=== PATIENT | female | born 2005 | race Two or more races ===

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

== ENCOUNTER 2024-03-13 03:33 | Emergency (ER) | payer OTHER ==
[2024-03-13 03:41] VITALS: BP 109/70; PULSE 72; RESP 20; TEMP 98; BMI 28.3
[2024-03-13] MEDS ORDERED: IBUPROFEN 600 MG TABLET (FP) PO ONE (04:05)
[2024-03-13] MEDS ORDERED: LIDOCAINE 4% PATCH TP ONE (04:05)
[2024-03-13] MEDS: IBUPROFEN 600 MG TABLET (FP) PO ONE (04:09)
[2024-03-13] MEDS: LIDOCAINE 5% TOPICAL PATCH TP ONE (04:09)
[2024-03-13] MEDS ORDERED: LIDOCAINE PATCH REMOVAL MC ONE (16:00)
== END 2024-03-13 05:36 | disposition home or self-care (01) ==
LOC: JER 03:33
DX: M25.521 Pain in right elbow (principal)
CPT/HCPCS: 73070-TC-RT-FY; 99283-25